=== PATIENT | female | born 1975 | race Caucasian/White ===

== ENCOUNTER 2016-09-28 20:18 | Emergency (ER) | payer OTHER | END 2016-09-29 01:59 | disposition home or self-care (01) | LOC: ER 20:18 | DX: R06.00 Dyspnea, unspecified (principal); R07.2 Precordial pain; R10.84 Generalized abdominal pain | CPT/HCPCS: 36415; 71010; 76705; 80053; 82150; 82553; 83690; 84484; 85025; 85379; 93005 ==